=== PATIENT | female | born 1950 | race Caucasian/White ===

== ENCOUNTER 2016-09-02 12:05 | Emergency (ER) | payer MEDICARE, BC ==
[~2016-09-02 12:05] MED LIST: ACETAMINOPHEN PO; ASPIRIN PO; FLAGYL PO; HUMALOG KWIK PEN SUBQ; HUMALOG MIX 75/10 ML SUBQ; LANTUS SOLOSTAR3 ML SUBQ; LEVOTHROID25 MCG PO; PANTOPRAZOLE SO40 MG
== END 2016-09-02 12:45 | disposition home or self-care (01) ==
LOC: CED 12:05 → CFTX 12:05
DX: K13.0 Diseases of lips (principal); T49.6X5A Adverse effect of otorhinolaryngological drugs and preparations, initial encounter; E11.9 Type 2 diabetes mellitus without complications; Z79.4 Long term (current) use of insulin; Z88.8 Allergy status to other drugs, medicaments and biological substances; Z88.1 Allergy status to other antibiotic agents
CPT/HCPCS: 99283